=== PATIENT | female | born 1950 | race Caucasian/White ===

== ENCOUNTER 2018-10-19 10:58 | Emergency (ER) | payer BC, MEDICARE ==
--- NOTE | 2018-10-19 11:45 | UC ---
Throat Pain/Nasal Bartolo HPI - HPI Summary HPI Summary: sore throat x 3 days nasal congestion , pnd , no no cough , no fever, no chills - History of Current Complaint Chief Complaint: UCRespiratory Stated Complaint: SORE THROAT Time Seen by Provider: 10/19/18 11:11 Hx Obtained From: Patient Onset/Duration: Gradual Onset, Lasting Days - 3, Still Present Severity: Moderate Pain Intensity: 5 Cough: None Associated Signs & Symptoms: Positive: Nasal Discharge. Negative: Dysphagia, FB Sensation, Drooling, Wheezing, Hoarseness, Sinus Discomfort, Fever, Vomiting , Rash - Allergies/Home Medications Allergies/Adverse Reactions: Allergies Allergy/AdvReac Type Severity Reaction Status Date / Time dulaglutide [From [facility]] Allergy Severe ACID Verified 10/19/18 11:14 REFLUX, BELCH[place], VOMITING erythromycin base Allergy Unknown Unknown Verified 10/19/18 11:14 Reaction Details Home Medications: Home Medications Acetaminophen TAB* [Tylenol TAB*] 650 mg PO Q4H PRN 10/19/18 [History Confirmed 10/19/18] Aspirin 81 mg CHEW TAB* [Aspirin Low Dose TAB*] 81 mg PO DAILY 10/19/18 [ History Confirmed 10/19/18] Calcium Carbonate CHEW TAB* [Tums*] 2 tab PO DAILY 10/19/18 [History Confirmed 10/19/18] Levalbuterol 1.25 mg/3 mL (NF) [Levalbuterol HCl] PRN 10/19/18 [History] Losartan TAB* [Cozaar TAB*] 50 mg PO DAILY 10/19/18 [History Confirmed 10/19/18] Metoprolol Succinate 100 mg PO DAILY 10/19/18 [History Confirmed 10/19/18] Multivitamin [Multivitamins] 1 each PO DAILY 10/19/18 [History Confirmed ] Simvastatin TAB(NF) [Zocor(NF)] 10 mg PO BEDTIME 10/19/18 [History Confirmed ] Spironolactone TAB* [Aldactone TAB*] 25 mg PO DAILY 10/19/18 [History Confirmed 10/19/18] Torsemide TAB* [Demadex*] 10 mg PO DAILY PRN 10/19/18 [History Confirmed ] Warfarin TAB(*) [Coumadin TAB(*)] 5 mg PO DAILY 10/19/18 [History Confirmed ] metFORMIN* [Glucophage 500 MG TAB *] 1,000 mg PO BID 10/19/18 [History Confirmed 10/19/18] PMH/Surg Hx/FS Hx/Imm Hx - Additional Past Medical History Additional PMH: MITRAL VALVE REPLACEMETN, RHEUMATIC FEVER A CHILD Endocrine History: Diabetes Cardiovascular History: Cardiac Disease, Hypertension - Surgical History Surgical History: Yes Surgery Procedure, Year, and Place: 3 OPEN HEART SURGERIES. "PLUG FOR A HOLE IN HER [facility]. APPENDECTOMY. HYSTERECTOMY - Family History Known Family History: Positive: Hypertension - Social History Alcohol Use: None Substance Use Type: None Smoking Status (MU): Never Smoked Tobacco Household Exposure Type: Cigarettes Review of Systems All Other Systems Reviewed And Are Negative: Yes Constitutional: Positive: Negative Skin: Positive: Negative Eyes: Positive: Negative ENT: Positive: Sore Throat, Nasal Discharge Respiratory: Positive: Negative Cardiovascular: Positive: Negative Gastrointestinal: Positive: Negative Is Patient Immunocompromised?: No Physical Exam Triage Information Reviewed: Yes Appearance: Well-Appearing, No Pain Distress, Well-Nourished Vital Signs: Initial Vital Signs Temp 98.4 F 10/19/18 11:23 Pulse 78 10/19/18 11:23 Resp 17 10/19/18 11:23 BP 134/70 10/19/18 11:23 Pulse Ox 98 10/19/18 11:23 Vital Signs Reviewed: Yes Eye Exam: Normal Eyes: Positive: Conjunctiva Clear ENT: Positive: Normal ENT inspection, Hearing grossly normal, Pharynx normal, Nasal congestion. Negative: Pharyngeal erythema, Nasal drainage Neck: Positive: Supple, Nontender, No Lymphadenopathy Respiratory: Positive: Chest non-tender, Lungs clear, Normal breath sounds Cardiovascular: Positive: RRR, No Murmur, Pulses Normal Abdominal Exam: Normal Skin Exam: Normal Throat Pain/Nasal Course/Dx - Differential Dx/Diagnosis Provider Diagnosis: Viral pharyngitis Discharge - Sign-Out/Discharge Documenting (check all that apply): Patient Departure All imaging exams completed and their final reports reviewed: No Studies - Discharge Plan Condition: Stable Disposition: HOME Patient Education Materials: Pharyngitis (ED) Referrals: Milana Metzger MD [Primary Care Provider] - If Needed - Billing Disposition and Condition Condition: STABLE Disposition: Home
== END 2018-10-19 11:54 | disposition home or self-care (01) ==
LOC: UCCORT 10:58
DX: J02.8 Acute pharyngitis due to other specified organisms (principal); E11.9 Type 2 diabetes mellitus without complications; I11.9 Hypertensive heart disease without heart failure; Z79.82 Long term (current) use of aspirin; Z79.01 Long term (current) use of anticoagulants; Z88.1 Allergy status to other antibiotic agents; Z88.8 Allergy status to other drugs, medicaments and biological substances
CPT/HCPCS: 99202; G0463